=== PATIENT | male | born 1960 | race Caucasian/White ===

== ENCOUNTER → 2021-12-05 | Outpatient (CLI) | payer MEDICAID ==
--- NOTE | 2021-12-05 17:44 | REP ---
INDICATION: LT LEG PAIN, R/O DVT COMPARISON: None. TECHNIQUE: Real time compression and duplex Doppler interrogation of the left lower extremity deep venous system is performed, including the right common femoral vein.Compression of the left peroneal and posterior tibial veins is performed. FINDINGS: The left common femoral, superficial femoral and popliteal veins are fully compressible with transducer pressure and demonstrate normal spontaneous and phasic flow, without evidence of deep venous thrombosis.The right common femoral vein demonstrates no thrombus.The visualized left peroneal and posterior tibial veins demonstrate no thrombus. IMPRESSION: No evidence of deep venous thrombosis of the left lower extremity femoral popliteal venous system.No thrombus in the visualized left peroneal and posterior tibial veins. <Electronically signed by Jessee Aguilar > 12/05/21 2167
== END ==
LOC: M RAD 16:41
PROVIDERS: ATTEND Physician Assistant
DX: M79.605 Pain in left leg (principal)

== ENCOUNTER → 2024-08-14 | Outpatient (CLI) | payer MEDICARE, MEDICAID ==
[2024-08-14 13:10] LABS: HEMOGLOBIN 12.8 g/dl (13.5-17.5); MEAN CORPUSCULAR HGB CONC 32.8 g/dl (32.0-36.5); MEAN CORPUSCULAR VOLUME 88.4 fl (80.0-96.0); PLATELET COUNT, AUTOMATED 211 10^3/uL (150-450); RED BLOOD COUNT 4.41 10^6/uL (4.30-6.10); WHITE BLOOD COUNT 5.4 10^3/uL (4.0-10.0)
[2024-08-14 13:35] LABS: ALKALINE PHOSPHATASE 62 U/L (46-116); ALT/SGPT 20 U/L (7.0-40); AST/SGOT 8 U/L (<34); BILIRUBIN,TOTAL 1.1 MG/DL (0.3-1.2); BLOOD UREA NITROGEN 38 MG/DL (9-23); CALCIUM LEVEL 9.8 MG/DL (8.3-10.6); CARBON DIOXIDE LEVEL 26 MMOL/L (20-31); CHLORIDE LEVEL 110 MMOL/L (98-107); GLOMERULAR FILTRATION RATE > 60.0 (>49); GLUCOSE, FASTING 99 MG/DL (74-106); POTASSIUM SERUM 4.3 MMOL/L (3.5-5.1); SODIUM LEVEL 140 MMOL/L (136-145); TOTAL PROTEIN 6.9 G/DL (5.7-8.2)
== END ==
LOC: M PLALAB 09:08
PROVIDERS: ATTEND Internal Medicine Cardiovascular Disease
DX: I50.32 Chronic diastolic (congestive) heart failure (principal); I48.0 Paroxysmal atrial fibrillation; I25.10 Atherosclerotic heart disease of native coronary artery without angina pectoris; I11.0 Hypertensive heart disease with heart failure

== ENCOUNTER → 2024-10-13 | Outpatient (CLI) | payer MEDICARE, MEDICAID | LOC: M RAD 09:23 | PROVIDERS: ATTEND Orthopaedic Surgery | DX: M79.669 Pain in unspecified lower leg (principal); M79.89 Other specified soft tissue disorders ==

== ENCOUNTER → 2024-10-21 | Outpatient (CLI) | payer MEDICARE, MEDICAID | LOC: M PLALAB 11:13 | PROVIDERS: ATTEND Orthopaedic Surgery | DX: M25.561 Pain in right knee (principal); M25.562 Pain in left knee ==

== ENCOUNTER → 2024-12-23 | Outpatient (CLI) | payer MEDICARE, MEDICAID | LOC: M WUC 14:33 | PROVIDERS: ATTEND Nurse Practitioner Family | DX: R07.82 Intercostal pain (principal); M54.89 Other dorsalgia; M47.814 Spondylosis without myelopathy or radiculopathy, thoracic region; Z91.81 History of falling ==

== ENCOUNTER → 2025-06-18 | Outpatient (CLI) | payer MEDICARE, MEDICAID ==
[2025-06-18 10:47] LABS: BASO # 0.1 10^3/uL (0.0-0.2); BASO % 1.2 % (0.0-1.0); EOS # 0.2 10^3/uL (0.0-0.5); EOS % 2.8 % (0.0-3.0); LYMPH # 1.4 10^3/uL (1.5-5.0); LYMPH % 23.3 % (24.0-44.0); MONO # 0.5 10^3/uL (0.0-0.8); MONO % 8.5 % (2.0-8.0); NEUTROPHILS # 3.7 10^3/uL (1.5-8.5); NEUTROPHILS % 63.7 % (36.0-66.0); PLATELET COUNT, AUTOMATED 219 10^3/uL (150-450)
[2025-06-18 11:18] LABS: ALT/SGPT 17.0 U/L (7.0-40); AST/SGOT 14.0 U/L (<34); CALCIUM LEVEL 9.4 MG/DL (8.3-10.6); CARBON DIOXIDE LEVEL 27.0 MMOL/L (20-31); CHLORIDE LEVEL 108.0 MMOL/L (98-107); CHOLESTEROL LEVEL 126.0 MG/DL (<200); CHOLESTEROL RISK RATIO 2.33 (<5); CREATININE FOR GFR 1.17 MG/DL (0.70-1.30); GLOMERULAR FILTRATION RATE 68.3 (>49); LDL CHOLESTEROL 54.1 MG/DL (<100); MAGNESIUM LEVEL 2.0 MG/DL (1.8-2.4); NON-HDL-C 72.1 MG/DL; POTASSIUM SERUM 4.3 MMOL/L (3.5-5.1); SODIUM LEVEL 143.0 MMOL/L (136-145); TRIGLYCERIDES LEVEL 90.0 MG/DL (<150)
== END ==
LOC: M PLALAB 07:53
PROVIDERS: ATTEND Registered Nurse
DX: I50.32 Chronic diastolic (congestive) heart failure (principal); I48.0 Paroxysmal atrial fibrillation; I25.10 Atherosclerotic heart disease of native coronary artery without angina pectoris

== ENCOUNTER → 2025-07-20 | Outpatient (CLI) | payer MEDICARE, MEDICAID | LOC: M RAD 07:52 | PROVIDERS: ATTEND Registered Nurse | DX: I71.40 Abdominal aortic aneurysm, without rupture, unspecified (principal) ==

== ENCOUNTER → 2025-10-27 | Outpatient (CLI) | payer MEDICARE, MEDICAID | LOC: M PLAIMG 10:25 | PROVIDERS: ATTEND Registered Nurse | DX: I77.810 Thoracic aortic ectasia (principal); I50.32 Chronic diastolic (congestive) heart failure; I27.23 Pulmonary hypertension due to lung diseases and hypoxia; I08.8 Other rheumatic multiple valve diseases ==